=== PATIENT | male | born 1970 | race Caucasian/White ===

== ENCOUNTER 2020-08-28 20:14 | Emergency (ER) | payer OTHER ==
[~2020-08-28] VITALS: Ht 180.3 cm; Wt 86.2 kg
[2020-08-28] MEDS ORDERED: LEVSIN/SL0.125 MG SL (23:49)
[2020-08-28] MEDS ORDERED: CIPRO500 MG PO (23:49)
[2020-08-28] MEDS ORDERED: PROTONIX40 MG PO (23:49)
[2020-08-28] MEDS ORDERED: FLAGYL500MG PO (23:49)
== END 2020-08-29 00:18 | disposition home or self-care (01) ==
LOC: ER 20:14
DX: K57.32 Diverticulitis of large intestine without perforation or abscess without bleeding (principal); Z03.818 Encounter for observation for suspected exposure to other biological agents ruled out; R10.32 Left lower quadrant pain

== ENCOUNTER 2021-02-26 21:29 | Emergency (ER) | payer OTHER ==
[~2021-02-26] VITALS: Ht 180.3 cm; Wt 88.5 kg
[~2021-02-26 21:29] MED LIST: CIPRO500 MG PO; FLAGYL500MG PO; LEVSIN/SL0.125 MG SL; PROTONIX40 MG PO
[2021-02-26] MEDS ORDERED: ORPHENADRINE C100 MG PO (22:48)
[2021-02-26] MEDS ORDERED: KETO10TA2 PO (22:48)
== END 2021-02-26 22:55 | disposition home or self-care (01) ==
LOC: ER 21:29
DX: S20.213A Contusion of bilateral front wall of thorax, initial encounter (principal); S30.0XXA Contusion of lower back and pelvis, initial encounter; W18.39XA Other fall on same level, initial encounter; Y93.89 Activity, other specified; Y92.091 Bathroom in other non-institutional residence as the place of occurrence of the external cause; Y99.8 Other external cause status